=== PATIENT | female | born 1960 | race Caucasian/White ===

== ENCOUNTER 2018-06-05 00:22 | Emergency (ER) | payer MEDICAID ==
[~2018-06-05] VITALS: Ht 152.4 cm; Wt 52.2 kg
[2018-06-05 00:29] VITALS: BP 103/69
--- NOTE | 2018-06-05 00:33 | NUR ---
PT AMBULATED TO LOBBY WITH VSS.
[2018-06-05] MEDS ORDERED: MORPHINE SULFATE 4 MG/ML SYR IM ONE (01:00)
--- NOTE | 2018-06-05 01:00 | NUR ---
TO ER BED 9
[2018-06-05] MEDS ORDERED: MIDAZOLAM 2 MG/2 ML VIAL IVP ONE (02:05)
[2018-06-05] MEDS ORDERED: NACL 0.9% 500 ML IV ONE (02:05)
[2018-06-05] MEDS ORDERED: KETAMINE 10 MG/ML UD SYR **ER IVP ONE (02:05)
--- NOTE | 2018-06-05 02:16 | NUR ---
MOVED TO ER BED 10
--- NOTE | 2018-06-05 03:00 | NUR ---
TIME OUT CALLED FOR PROCEDURE, DR. DEJESUS, AND MECCA VALENCIA AT BEDSIDE.
--- NOTE | 2018-06-05 03:03 | NUR ---
MEDICATION ADM BY DR. DEJESUS.
--- NOTE | 2018-06-05 03:07 | NUR ---
COLLES SPLINT APPLIED TO PT L WRIST, WRAPPED IN NBA WRAP. +CSM
--- NOTE | 2018-06-05 03:08 | NUR ---
COLLES SLINT APPLIED TO LEFT WRIST USING ORTHO GLASS, AND NBA WARPING. RADIAL PULSES WNL. CAP REFIL <3. NO EDEMA OR REDNESS NOTED AROUND APPLIED SPLIT AT THIS TIME.
--- NOTE | 2018-06-05 03:50 | NUR ---
X-RAY AT BEDSIDE.
--- NOTE | 2018-06-05 05:00 | NUR ---
Patient appears to be resting comfortably in bed. Vital Signs within normal limits. Respirations even and unlabored.
--- NOTE | 2018-06-05 05:31 | NUR ---
SLING SIZE MEDIUM APPLIED TO PT L ARM AND FITTED
[2018-06-05] MEDS ORDERED: KETOROLAC 30 MG/ML VIAL IVP ONE (05:40)
--- NOTE | 2018-06-05 06:30 | NUR ---
Patient discharged with v/s stable. Written and verbal after care instructions given and explained. Patient alert, oriented and verbalized understanding of instructions. Ambulatory with steady gait. All questions addressed prior to discharge. ID band removed. Patient advised to follow up with PMD. Rx of TRAMADOL, MOTRIN given. Patient educated on indication of medication including possible reaction and side effects. Opportunity to ask questions provided and answered.
[2018-06-05 06:31] VITALS: BP 110/74
== END 2018-06-05 06:31 | disposition home or self-care (01) ==
LOC: MED 00:22
DX: S52.532A Colles' fracture of left radius, initial encounter for closed fracture (principal); I10 Essential (primary) hypertension; M81.0 Age-related osteoporosis without current pathological fracture; F17.210 Nicotine dependence, cigarettes, uncomplicated; W19.XXXA Unspecified fall, initial encounter; Y93.89 Activity, other specified; Y92.89 Other specified places as the place of occurrence of the external cause; Y99.8 Other external cause status
CPT/HCPCS: 25605; 73110; 96372; 96374; 99152; 99285; G0500; J1885; J2250; J2270; J7030; Q0092